=== PATIENT | male | born 2000 | race Hispanic/Latino ===

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

== ENCOUNTER 2023-09-09 16:34 | Emergency (ER) | payer SELFPAY ==
--- OUTSIDE RECORDS SUMMARY | 2023-09-09 16:38 | XMS REPORT | Continuity of Care Document ---
Author Name Unknown Address [address] [facility] [address] [place] [address] [facility] thconnect Address [address] [facility] [address] [place] [address] Care Team Providers Care Risk Control Representative Name Role Phone Pcp, Patient Does Not Have A Primary Care Physic maya ETTA PHAM Attending Clinician Unavailab DOMINICK Anne Attending Clinician Unavailable Dominick Dawn MD Attending Clinician [phone] DOMINICK DAWN Admitting Clinician Unavailable Allergies, Adverse Reactions, Alerts Allergy Name Allergy Type Status Severity Reaction(s) Onset Date Inactive Date Treating Clinician Comments Source NO KNOWN ALLERGIE S Drug Class Active [facility] Social History Social Habit Start Date Stop Date Quantity Comments Source Sexual orientation U [facility] Exposure to SARS-CoV-2 (event) 2022-06-27 00:00:00 2022-07-07 19:12:00 Not sure [facility] Sex Assigned At 2000 00:00:00 2000 00:00:00 [facility] Smoking Status Start Date Stop Date Source Tobacco smoking consumption unknown [facility] Medications Ordered Medication Name Filled Medication Name Start Date Stop Date Current Medication? Ordering Clinician Indication Dosage Frequency Signature (SIG) Comments Components Source iopamidol (ISOVUE 370-500 mL) injection 100 mL 2022-06 11:00: 00 03-22 11:00 :00 No [id number] 100mL 100 mL, Intravenou s, ONCE, 1 dose, On Tue03/22/23 at 0600, Routine [facility] ketorolac (TORADOL) injection 30 mg 2022-06 10:45: 00 03-22 09:51 :00 No 30mg 30 mg, Slow IV Push, ONCE, 1 dose, On Tue03/22/23 at 0545, Routine [facility] ibuprofen 800 mg tablet 2022-06 00:00: 00 Yes [id number] 609922 800mg Take 1 tablet by mouth every 8 (eight) hours as needed for Pain (scale 4-6). [facility] ondansetron (ZOFRAN) 4 mg tablet 2022-06 00:00: 00 Yes [id number] 456094 4mg Take 1 tablet by mouth every 8 (eight) hours as needed for Nausea and Vomiting (N/V). [facility] iopamidol (ISOVUE 370-500 mL) injection 80 mL 07-08 03:15: 00 07-08 03:15 :00 No [id number] 80mL 80 mL, Intravenou s, ONCE, 1 dose, On Tue07/07/22 at 2115, Routine [facility] ketorolac (TORADOL) injection 30 mg 07-08 03:15: 00 07-08 02:11 :00 No 30mg 30 mg, Slow IV Push, ONCE, 1 dose, On Tue07/07/22 at 2115, Routine [facility] ibuprofen 600 mg tablet 07-07 00:00: 00 Yes [id number] 600mg Take 1 tablet by mouth every 8 (eight) hours as needed for Pain (scale 4-6). [facility] dexmethylph enidate (FOCALIN XR) 15 mg 24 hr capsule 12-10 13:18: 21 Yes 15mg Take 15 mg by mouth daily. [facility] risperidone (RISPERDAL) 0.25 mg tablet 12-10 13:18: 21 Yes .25mg Take 0.25 mg by mouth at bedtime. [facility] Vital Signs Vital Name Observation Time Observation Value Comments S james Systolic blood pressure 2023-09-06 22:28:00 135 mm[Hg] [facility] Diastolic blood pressure 2023-09-06 22:28:00 73 mm[Hg] [facility] Heart rate 2023-09-06 22:28:00 60 /min [facility] Body temperature 2023-09-06 22:28:00 37.28 Valeri [facility] Respiratory rate 2023-09-06 22:28:00 16 /min [facility] Body height 2023-09-06 22:28:00 175.3 cm [facility] Body weight 2023-09-06 22:28:00 68.04 kg [facility] BMI 2023-09-06 22:28:00 22.15 kg/m2 [facility] Oxygen saturation in Arterial blood by Pulse oximetry 2023-09-06 22:28:00 99 /min [facility] Systolic blood pressure 2023-03-22 09:18:00 141 mm[Hg] [facility] Diastolic blood pressure 2023-03-22 09:18:00 82 mm[Hg] [facility] Heart rate 2023-03-22 09:18:00 72 /min [facility] Body temperature 2023-03-22 09:18:00 36.39 Valeri [facility] Respiratory rate 2023-03-22 09:18:00 16 /min [facility] Body height 2023-03-22 09:18:00 177.8 cm [facility] Body weight 2023-03-22 09:18:00 77.111 kg [facility] BMI 2023-03-22 09:18:00 24.39 kg/m2 [facility] Oxygen saturation in Arterial blood by Pulse oximetry 2023-03-22 09:18:00 100 /min [facility] Systolic blood pressure 2022-07-08 03:26:00 109 mm[Hg] [facility] Diastolic blood pressure 2022-07-08 03:26:00 61 mm[Hg] [facility] Heart rate 2022-07-08 03:26:00 56 /min [facility] Oxygen saturation in Arterial blood by Pulse oximetry 2022-07-08 03:26:00 98 /min [facility] Body temperature 2022-07-08 01:14:00 37.11 Valeri [facility] Respiratory rate 2022-07-08 01:14:00 16 /min [facility] Body height 2022-07-08 01:14:00 177.8 cm [facility] Body weight 2022-07-08 01:14:00 76.295 kg [facility] BMI 2022-07-08 01:14:00 24.13 kg/m2 [facility] Procedures Procedure Date / Time Performed Performing Clinicia n Source CT ABDOMEN PELVIS W CONTRAST 2023-03-22 10:00:50 Dominick Dawn [facility] LIPASE 2023-03-22 09:49:00 Dominick Dawn [facility] COMP. METABOLIC PANEL ([id number]) 2023-03-22 09:49:00 Dominick Dawn [facility] CBC WITH DIFF 2023-03-22 09:49:00 Dominick Dawn [facility] URINALYSIS 2023-03-22 09:49:00 Dominick Dawn [facility] CONSENT/REFUSAL FOR DIAGNOSIS AND TREATMENT 2023-03-22 09:14:22 Doctor Unassigned, [place] [facility] URINALYSIS 2022-07-08 02:02:00 Dominick Dawn [facility] COMP. METABOLIC PANEL ([id number]) 2022-07-08 01:22:00 Dominick Dawn [facility] CBC WITH DIFF 2022-07-08 01:22:00 Dominick Dawn [facility] NOTICE OF PRIVACY PRACTICES 2022-07-08 01:08:13 Doctor Unassigned, [place] [facility] CONSENT/REFUSAL FOR DIAGNOSIS AND TREATMENT 2022-07-08 01:07:30 Doctor Unassigned, [place] [facility] Encounters Start Date/Time End Date/Time Encounter Type Admission Type Attending [facility] Care Department Encounter ID Source 2023-09-06 17:29:00 2023-09-06 17:53:00 Emergency X ETTA PHAM [facility] [[email or web address] ERT [id number] [facility] 2023-09-06 17:29:00 2023-09-06 17:53:00 Emergency Etta Pham [facility] [id number] [id number] 4.2.7.2.686 [id number] [facility] 2023-03-22 04:22:00 2023-03-22 06:13:00 Emergency X DOMINICK DAWN [facility] [[email or web address]] ERT [id number] [facility] 2023-03-22 04:22:00 2023-03-22 06:13:00 Emergency Dominick Dawn [facility] 1.2.840.114 350.1.13.10 4.2.7.2.686 [id number] [facility] 2022-07-07 19:17:00 2022-07-07 21:29:00 Emergency Dominick Dawn [facility] 1.2.840.114 350.1.13.10 4.2.7.2.686 [id number] [facility] 2022-07-07 19:17:00 2022-07-07 21:29:00 Emergency X DOMINICK DAWN [facility] [[email or web address]] ERT [id number] [facility] Results Test Description Test Time Test Comments Results Result Co mments Source [facility]50* Test Item Value Reference Range Interpretation Comme nts LIPASE (test code = 1051716945) 62 U/L 0-220 Lab Interpretation (test cod e = 63309-9) [facility]R5494-85-00 10:05:05* Test Item Value Reference Range Interpretation Comme nts WBC (test code = 6690-2) 9.01 See_Comment [Automated messa ge] The system which generated this result transmitted reference range: 4.20 - 10.70 10*3/?L. The reference range was not used to interpret this result as normal/abnormal. RBC (test code = 789-8) 5.07 See_Comment [Automated messa ge] The system which generated this result transmitted reference range: 4.26 - 5.52 10*6/?L. The reference range was not used to interpret this result as normal/abnormal. HGB (test code = 718-7) 16.3 g/dL 12.2-16.4 HCT (test code = 4544-3) 47.0 % 38.4-49.3 MCV (test code = 787-2) 92.7 fL 81.7-95.6 MCH (test code = 785-6) 32.1 pg 26.1-32.7 MCHC (test code = 786-4) 34.7 g/dL 31.2-35.0 RDW-SD (test code = 31881-9) 41.3 fL 38.5-51.6 RDW-CV (test code = 788-0) 12.2 % 12.1-15.4 PLT (test code = 777-3) 305 See_Comment [Automated messa ge] The system which generated this result transmitted reference range: 150 - 328 10*3/?L. The reference range was not used to interpret this result as normal/abnormal. MPV (test code = 41890-0) 10.6 fL 9.8-13.0 NRBC/100 WBC (test code = 0005881068) 0.0 See_Comment [Automated me ssage] The system which generated this result transmitted reference range: 0.0 - 10.0 /100 WBCs. The reference range was not used to interpret this result as normal/abnormal. NRBC x10^3 (test code = 3547349119) See_Comment [Automated me ssage] The system which generated this result transmitted reference range: 10*3/?L. The reference range was not used to interpret this result as normal/abnormal. GRAN MAT (NEUT) % (test code = 770-8) 54.9 % IMM GRAN % (test code = 5858461287) 0.30 % LYMPH % (test code = 736-9) 33.5 % MONO % (test code = 5905-5) 9.8 % EOS % (test code = 713-8) 0.9 % BASO % (test code = 706-2) 0.6 % GRAN MAT x10^3(ANC) (test code = 7400670188) 4.95 10*3/uL 1.99-6.95 IMM GRAN x10^3 (test code = 2069382805) 0.03 10*3/uL 0.00-0.06 LYMPH x10^3 (test code = 731-0) 3.02 10*3/uL 1.09-3.23 MONO x10^3 (test code = 742-7) 0.88 10*3/uL 0.36-1.02 EOS x10^3 (test code = 711-2) 0.08 10*3/uL 0.06-0.53 BASO x10^3 (test code = 704-7) 0.05 10*3/uL 0.01-0.09 [id number][facility]20[facility]-08 01:46:08* Test Item Value Reference Range Interpretation Comme nts NA (test code = 8393509561) 140 mmol/L 135-145 K (test code = 3810117857) 4.1 mmol/L 3.5-5.0 CL (test code = 0931717897) 104 mmol/L 98-108 CO2 TOTAL (test code = 1022389128) 29 mmol/L 23-31 AGAP (test code = 8245219310) 7 2-16 BUN (test code = 7646398389) 13 mg/dL 7-23 GLUCOSE (test code = 5249745100) 92 mg/dL 70-110 CREATININE (test code = 2531356043) 1.01 mg/dL 0.60-1.25 TOTAL BILI (test code = 2573182648) 1.0 mg/dL 0.1-1.1 CALCIUM (test code = 4425116655) 9.6 mg/dL 8.6-10.6 T PROTEIN (test code = 2624806386) 7.8 g/dL 6.3-8.2 ALBUMIN (test code = 7940912061) 4.8 g/dL 3.5-5.0 ALK PHOS (test code = 8597672579) 62 U/L 34-122 ALTv (test code = 1742-6) 35 U/L 5-50 AST(SGOT) (test code = 8410319180) 33 U/L 13-40 eGFR (test code = 9493324864) 94.2 mL/min/1.73m2 YSABEL (test code = YSABEL) Association of Glomerular Filtration Rate (GFR) and Staging of Kidney Disease* + + +- +| GFR (mL/min/1.73 m2) ?| With Kidney Damage ?| ?Without Kidney Damage+ ------+ ----+ ------+| ?>90 ?| ?Stage one ?| ? Normal ?+ -+ + -+| ?60-89 ?| ?Stage two ?| ? Decreased GFR ? + + +- +| ?30-59 ?| ?Stage three ?| ? Stage three ? + + +- +| ?15-29 ?| ?Stage four ? | ? Stage four ?+ -+ + -+| ?<15 (or dialysis) ? ?| ?Stage five ? | ? Stage five ?+ -+ + -+ *Each stage assumes the associated GFR level has been in effect for at least three months. ?Stages 1 to 5, with or without kidney disease, indicate chronic kidney disease. Notes: Determination of stages one and two (with eGFR >59mL/min/1.73 m2) requires estimation of kidney damage for at least three months as defined by structural or functional abnormalities of the kidney, manifested by either:Pathological abnormalities or Markers of kidney damage (including abnormalities in the composition of the blood or urine or abnormalities in imaging tests). [facility] WITH TYMT9085-90-43 01:37:08* Test Item Value Reference Range Interpretation Comme nts WBC (test code = 6690-2) 8.74 See_Comment [Automated messa ge] The system which generated this result transmitted reference range: 4.20 - 10.70 10*3/?L. The reference range was not used to interpret this result as normal/abnormal. RBC (test code = 789-8) 5.04 See_Comment [Automated messa ge] The system which generated this result transmitted reference range: 4.26 - 5.52 10*6/?L. The reference range was not used to interpret this result as normal/abnormal. HGB (test code = 718-7) 15.9 g/dL 12.2-16.4 HCT (test code = 4544-3) 45.5 % 38.4-49.3 MCV (test code = 787-2) 90.3 fL 81.7-95.6 MCH (test code = 785-6) 31.5 pg 26.1-32.7 MCHC (test code = 786-4) 34.9 g/dL 31.2-35.0 RDW-SD (test code = 14465-2) 38.1 fL 38.5-51.6 L RDW-CV (test code = 788-0) 11.6 % 12.1-15.4 L PLT (test code = 777-3) 301 See_Comment [Automated [employer] ge] The system which generated this result transmitted reference range: 150 - 328 10*3/?L. The reference range was not used to interpret this result as normal/abnormal. MPV (test code = 73009-5) 10.2 fL 9.8-13.0 NRBC/100 WBC (test code = 5709228301) 0.0 See_Comment [Automated [employer] ssage] The system which generated this result transmitted reference range: 0.0 - 10.0 /100 WBCs. The reference range was not used to interpret this result as normal/abnormal. NRBC x10^3 (test code = 1029721848) See_Comment [Automated messa ge] The system which generated this result transmitted reference range: 10*3/?L. The reference range was not used to interpret this result as normal/abnormal. GRAN MAT (NEUT) % (test code = 770-8) 57.1 % IMM GRAN % (test code = 7017912954) 0.50 % LYMPH % (test code = 736-9) 31.6 % MONO % (test code = 5905-5) 9.6 % EOS % (test code = 713-8) 0.7 % BASO % (test code = 706-2) 0.5 % GRAN MAT x10^3(ANC) (test code = 9298441318) 5.00 10*3/uL 1.99-6.95 IMM GRAN x10^3 (test code = 4089967055) 0.04 10*3/uL 0.00-0.06 LYMPH x10^3 (test code = 731-0) 2.76 10*3/uL 1.09-3.23 MONO x10^3 (test code = 742-7) 0.84 10*3/uL 0.36-1.02 EOS x10^3 (test code = 711-2) 0.06 10*3/uL 0.06-0.53 BASO x10^3 (test code = 704-7) 0.04 10*3/uL 0.01-0.09 Lab Interpretation (test code = 24507-2) Abnormal [facility] Notes Date/Time Note Provider Source 2023-09-06 17:52:52 887jWQcmQByCoDPscgdk vLBhHDi1JHxhtE [facility]/BIJARKJsDbnBJgynBKt994kfq0627 -04-02T17:52:52 Pt seen by provider and deemed non-emergent. Medical screening completed. Vital signs stable, AO4, no ataxia, gait steady on departure and appears in no distress. 44402-7Hcuflmqjd department CrcrUD9478-85-61P47:53:03[facility] NoteTXT1.2.840.311586.1.13.104.2.7 .2.027864|[id number] for patient xxlb66635-7SiybOLALUVSDJEMFfnvsuyq d C-CDA narrative [id number] Fimariela TELLESUT[address] StreetNjxjKduihgswlMertrrtngDRGI70983025 78UBXXMMHYZIYFLCVSEYXNXF9322-09-94 T17:53:031.2.840.676143.1.72.3.15| 1.2.840.611635.1.13.104.2.7.2.7278 [id number] Hien Hector TELLES [facility] 2023-09-06 17:26:03 QTp/SzV3pI9HPTejP6ma EIh+Y/qf1lS0Z9 5lZlTbW5Rm/GhbPXtIreraEzYWqQTN3046 -04-02T17:26:03 Pt arrived via private car states "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 Area pt is referring to and points at for the area of concern is his xiphoid process. 23940-4Wikusjtol department Triage dmarVL7176-49-21T39:30:24Emergency department Triage noteTXT1.2.840.835861.1.13.104.2.7 .2.317288|[id number] for patient ruwn29550-5Vbjnxkoqs department NoteLNNARRATIVEFormatted C-CDA narrative [id number] L Barker RNUT31 Harris StreetXqkmJyaguxwkgUkqwjtwepILNG31762823 33VVTMAUSCFNMQJODHKRVSVY9147-82-64 T17:30:241.2.840.898114.1.72.3.15| 1.2.840.480289.1.13.104.2.7.2.7278 [id number] Miguelina Rubalcava RN [facility]
--- NOTE | 2023-09-09 17:28 | RAD REPORT ---
EXAM DESCRIPTION: CTStone Protocol - 09/09/2023 5:12 pm CLINICAL HISTORY: FLANK PAIN COMPARISON: No comparisons TECHNIQUE: CT of the abdomen and pelvis was performed. All CT scans are performed using dose optimization technique as appropriate and may include automated exposure control or mA/KV adjustment according to patient size. FINDINGS: Lower chest: No acute abnormality. Liver: No acute abnormality or suspicious lesions. Biliary: No biliary ductal dilatation. Stomach: No significant focal abnormality. Duodenum: No significant focal abnormality. Pancreas: No significant abnormality. Spleen: No significant abnormality. Adrenal: No suspicious lesions. Kidney/ureter: No hydronephrosis. No renal calculi. Retroperitoneum: No retroperitoneal adenopathy. Vascular: No aneurysm. Bowel: No significant focal abnormality. Appendix within normal limits . Peritoneum: No ascites or free air. Small focus of capsulated fat and stranding along the proximal si gmoid could represent epiploic appendagitis. Bladder: Grossly unremarkable. Reproductive: No adnexal masses. Bones: No acute fracture. Other: n/a IMPRESSION: Age indeterminate epiploic appendagitis along the proximal sigmoid. No other acute findi ngs identified. No renal or ureteral calculi. Normal appendix.
--- NOTE | 2023-09-09 17:47 | EDPHYS ---
Physician Documentation [facility] Name: David Smyth Age: 23 yrs Sex: Male : 2000 Arrival Date: 09/09/2023 Time: 16:34 Bed DX3 Private MD: ED Physician Ishan Gilbert HPI: 09/08 17:33 This 23 yrs old Male presents to ER via Ambulatory with complaints of Back rn Pain. 17:33 The patient presents with pain that is acute. The symptoms are located in the low back. rn 17:34 Onset: The symptoms/episode began/occurred 1 week(s) ago. The pain does not radiate. rn Associated signs and symptoms: Pertinent positives: dysuria, Pertinent negatives: hematuria, incontinence, numbness, tingling, urinary retention. The problem was sustained from unknown cause. Modifying factors: The patient symptoms are alleviated by nothing, the patient symptoms are aggravated by nothing. Severity of symptoms: At their worst the symptoms were mild, in the emergency department the symptoms are unchanged. The patient has not experienced similar symptoms in the past. Patient reports lower back pain for 1 week. Denies injury. No trauma. Associated with subjective decreased urinary output and mild dysuria. No fever or chills. No history of kidney stone. No concern for sexually transmitted disease. No discharge.. Historical: - Allergies: 16:50 No Known Allergies; ll1 - PMHx: 16:50 None; ll1 - PSHx: 16:50 None; ll1 - Immunization history:: Adult Immunizations up to date. - Infectious Disease History:: Denies. - Social history:: Smoking status: Patient denies any tobacco usage or history of. - Family history:: not pertinent. - Hospitalizations: : No recent hospitalization is reported. ROS: 17:34 Constitutional: Negative for fever, chills, and weight loss, Cardiovascular: Negative rn for chest pain, palpitations, and edema, Respiratory: Negative for shortness of breath, cough, wheezing, and pleuritic chest pain, Abdomen/GI: Negative for abdominal pain, nausea, vomiting, diarrhea, and constipation, Back: Positive for lower back pain : Positive for dysuria, negative for hematuria or drainage MS/Extremity: Negative for injury and deformity, Neuro: Negative for headache, weakness, numbness, tingling, and seizure, Exam: 17:34 Constitutional: This is a well developed, well nourished patient who is awake, alert, rn and in no acute distress. Cardiovascular: Regular rate and rhythm. No pulse deficits. Respiratory: No increased work of breathing, no retractions or nasal flaring. Abdomen/GI: Soft, nontender, no rebound Back: No spinal tenderness. No costovertebral tenderness. Full range of motion. MS/ Extremity: Pulses equal, no cyanosis. Neurovascular intact. Full, normal range of motion. Equal circumference. Neuro: Awake and alert, GCS 15, oriented to person, place, time, and situation. Cranial nerves II-XII grossly intact. Motor strength 5/5 in all extremities. Sensory grossly intact. Cerebellar exam normal. Normal gait. Vital Signs: 16:48 BP 159 / 92; Pulse 70; Resp 16; Temp 97.2; Pulse Ox 100% ; Pain 6/10; ll1 16:48 Pain Scale: Adult ll1 MDM: 16:45 Patient medically screened. cp 17:45 Differential diagnosis: Ureterolithiasis Urinary tract infection, diverticulitis. Data rn reviewed: vital signs, nurses notes, lab test result(s), radiologic studies, CT scan, and as a result, I will discharge patient. Counseling: I had a detailed discussion with the patient and/or guardian regarding the historical points, exam findings, and any diagnostic results supporting the discharge/admit diagnosis, lab results, radiology results, the need for outpatient follow up, to return to the emergency department if symptoms worsen or persist or if there are any questions or concerns that arise at home. Special discussion: I discussed with the patient/guardian in detail that at this point there is no indication for admission to the hospital. It is understood, however, that if the symptoms persist or worsen the patient needs to return immediately for re-evaluation. ED course: CT shows possible epiploic appendagitis. Urine shows calcium oxalate crystals present, could have passed a recent stone. No evidence of infection in the urine. Will DC home with return precautions.. 09/08 16:47 Order name: CT Stone Protocol; Complete Time: 17:31 ll1 Administered Medications: No medications were administered Disposition Summary: 09/09/23 17:47 Discharge Ordered Notes: Location: Home rn Problem: new rn Symptoms: have improved rn Condition: Stable rn Diagnosis - Epiploic Appendagitis rn Followup: rn - With: Private Physician - When: As needed - Reason: Recheck today's complaints, Re-evaluation by your physician Discharge Instructions: - Discharge Summary Sheet rn - Hong Guerra rn Forms: - Medication Reconciliation Form rn - Thank You Letter rn - Antibiotic international trade manager - Prescription Opioid Use rn - Patient Portal Instructions rn - Leadership Thank You Letter rn Prescriptions: - Flagyl 500 mg Oral Tablet - take 1 tablet ORAL route every 12 hours for 7 days; 14 tablet; Refills: 0, rn Product Selection Permitted - Cipro 500 mg Oral Tablet - take 1 tablet ORAL route every 12 hours for 7 days; 14 tablet; Refills: 0, rn Product Selection Permitted Signatures: Dispatcher [employer] EDMS Ishan Gilbert MD MD rn Page, Corey, PA PA cp Lewis, Lynsay, RN RN ll1 Corrections: (The following items were deleted from the chart) 16:48 16:48 Stone Protocol+CT.RAD.BRZ ordered. EDMS EDMS
--- NOTE | 2023-09-09 17:47 | ER ---
Nurse's Notes [facility] Name: David Smyth Age: 23 yrs Sex: Male : 2000 Arrival Date: 09/09/2023 Time: 16:34 Bed DX3 Private MD: Diagnosis: Epiploic Appendagitis Presentation: 09/08 16:43 Ebola Screen: Patient denies travel to an Ebola-affected area in the 21 days before ll1 illness onset. Initial Sepsis Screen: Does the patient meet any 2 criteria? No. Patient's initial sepsis screen is negative. Does the patient have a suspected source of infection? No. Patient's initial sepsis screen is negative. Risk Assessment: Do you want to hurt yourself or someone else? Patient reports no desire to harm self or others. 16:43 Method Of Arrival: Ambulatory ll1 16:48 Chief complaint: Patient states: Low back pain for 1 week. Slight oliguria and noticed ll1 urine darker yellow than normal. No fevers. Coronavirus screen: Client denies travel out of the [place] in the last 14 days. At this time, the client does not indicate any symptoms associated with coronavirus-19. Onset of symptoms was September 09, 2023. 16:48 Acuity: SPENCER 3 ll1 Historical: - Allergies: 16:50 No Known Allergies; ll1 - PMHx: 16:50 None; ll1 - PSHx: 16:50 None; ll1 - Immunization history:: Adult Immunizations up to date. - Infectious Disease History:: Denies. - Social history:: Smoking status: Patient denies any tobacco usage or history of. - Family history:: not pertinent. - Hospitalizations: : No recent hospitalization is reported. Screenin:00 [facility] ED Fall Risk Assessment (Adult) Score/Fall Risk Level 0 - 2 = Low Risk hb Oriented to surroundings, Maintained a safe environment, Educated pt \T\ family on fall prevention, incl call for assistance when getting out of bed. Abuse screen: Denies threats or abuse. Denies injuries from another. Nutritional screening: No deficits noted. Tuberculosis screening: No symptoms or risk factors identified. Assessment: 18:00 General: Appears in no apparent distress. Behavior is calm, cooperative. Pain: Pain hb currently is 3 out of 10 on a pain scale. Neuro: Level of Consciousness is awake, alert, obeys commands, Oriented to person, place, time, situation. Cardiovascular: Patient's skin is warm and dry. Respiratory: Respiratory effort is even, unlabored, Respiratory pattern is regular, symmetrical. GI: Reports lower abdominal pain, upper abdominal pain. : No signs and/or symptoms were reported regarding the genitourinary system. EENT: No signs and/or symptoms were reported regarding the EENT system. Derm: Skin is pink, warm \T\ dry. Musculoskeletal: No signs and/or symptoms reported regarding the musculoskeletal system. Vital Signs: 16:48 BP 159 / 92; Pulse 70; Resp 16; Temp 97.2; Pulse Ox 100% ; Pain 6/10; ll1 16:48 Pain Scale: Adult ll1 ED Course: 16:37 Patient arrived in ED. mr 16:43 Arm band placed on. ll1 16:45 Ishan Gilbert MD is Attending Physician. rn 16:45 Feng Dickerson PA is PHCP. cp 16:45 Ishan Gilbert MD is Attending Physician. cp 16:49 Triage completed. ll1 17:13 CT Stone Protocol In Process Unspecified. EDMS 17:13 Urinalysis w/ reflexes Sent. ll1 18:00 Patient has correct armband on for positive identification. Provided Education on: hb medications, followup. 18:00 No provider procedures requiring assistance completed. Patient did not have IV access hb during this emergency room visit. Administered Medications: No medications were administered Medication: 18:00 VIS not applicable for this client. hb Outcome: 17:47 Discharge ordered by . rn 18:25 Discharged to home ambulatory, hb 18:25 Condition: stable 18:25 Discharge instructions given to patient, Instructed on discharge instructions, follow up and referral plans. medication usage, Demonstrated understanding of instructions, follow-up care, medications, Prescriptions given X 2, 18:29 Patient left the ED. [id number] Signatures: Dispatcher [employer] EDAR Zena Mena, Reg Reg mr Ishan Gilbert MD MD rn Page, Corey, PA PA Luciana Barlow RN RN hb Lewis, Lynsay, RN RN [facility] Gia Fernandez [id number]
[2023-09-09 21:07] VITALS: BP 159/92; TEMP 97.2; O2SAT 100
== END 2023-09-09 18:29 | disposition home or self-care (01) ==
LOC: ER 16:34
DX: K63.89 Other specified diseases of intestine (principal)
CPT/HCPCS: 74176; 76377; 99283